=== PATIENT | female | born 2000 ===

== ENCOUNTER 2021-04-01 21:10 | Emergency (ER) | payer SELFPAY ==
--- OUTSIDE RECORDS SUMMARY | 2021-04-01 21:14 | XMS REPORT | Continuity of Care Document ---
:2000 Author Organization [facility] t Address [address] [place] [address] Care Team Providers Name Role Phone DR CALIN SHEIKH Attending Clinician Unavailable RAMESH DRUMMOND Attending Clinician Unavailable DR CHANEL NGO Attending Clinician Unavailable DR Lakhwinder SHEIKH Attending Clinician Unavailable DR KORI Admitting Clinician Unavailable DR Jacqueline NGO Admitting Clinician Unavailable DR Lakhwinder SHEIKH Admitting Clinician Unavailable Problems This patient has no known problems. Allergies, Adverse Reactions, Alerts This patient has no known allergies or adverse reactions. Medications This patient has no known medications. Procedures This patient has no known procedures. Encounters Start End Encounter Admission Attending Care Care Encounter Source Date/Time Date/Time Type Type Clinicians Facility Department ID 2020-05-09 2020-05-09 Emergency E KORI [facility] [id number] 15 15:06:00 22:08:00 [facility] 2019-09-12 2019-09-12 Emergency BHANU [facility] [id number] [place] 00:00:00 00:00:00 RAMESH [address] 2018-05-22 2018-05-22 Emergency [facility] [id number] [place] 22:10:38 22:10:38 Health 2018-05-22 2018-05-22 Emergency [facility] [id number] [place] 18:17:20 18:17:20 Health 2018-02-15 2018-02-15 Emergency Jacqueline NGO [facility] [id number] be 12:13:00 15:26:00 [facility] 2017-06-16 2017-06-16 Emergency E ATA SHEIKH [facility] [id number] [place] 03:57:00 15:07:00 [facility] 2017-03-31 2017-03-31 Emergency E ATA SHEIKH [facility] [id number] [place] 15:35:00 16:50:00 Medica l Center Results Test Description Test Time Test Comments Results Result Comments Source ACETAMINOPHEN 2020-05-09 18:45:00 Test Item Value Reference Range Interpretation Comme nts ACETAMINPH (test code = 94M) <2.0 ug/mL 10.0-30.0 L LIVER [id number] 18:40:00 Test Item Value Reference Range Interpretation Comments BILI TOTAL (test code 0.5 mg/dL 0.2-1.0 = 11A) BILI DIRCT (test code 0.1 mg/dL 0.0-0.2 = 12A) BILI INDIR (test code 0.4 mg/dL See_Comment [Auto mated message] = BILII) The system Mashed jobs generated this result transmitted ref erence range: <=0.8. T he reference range was not used to interpr et this result as normal/abnormal . PROTEIN (test code = 7.9 g/dL 6.4-8.2 07D) ALBUMIN (test code = 3.8 g/dL 3.5-4.8 08D) GLOBULIN (test code = 4.1 g/dL 1.5-3.8 H GLB) ALB/GLOB (test code = 0.9 1.0-2.6 L AGRR) ALK PHOS (test code = 160 IU/L 42-121 H 35A) AST (test code = 30A) 23 IU/L See_Comment [Auto mated message] The system Mashed jobs generated this result transmitted ref erence range: <=42. Th e reference range was not used to interpr et this result as normal/abnormal . ALT (test code = 31A) 48 IU/L See_Comment [Auto mated message] The system Mashed jobs generated this result transmitted ref erence range: <=78. Th e reference range was not used to interpr et this result as normal/abnormal . DRUGS OF [id number] 18:40:00 Test Item Value Reference Range Interpretation Comments DRUG SCRN (test code URINE DRUG SCREEN = HDOA) This is an unconfirmed screening result and should not be used for non-medical purposes CANNABINOD (test code POSITIVE NEGATIVE A = 88C) AMPHETAMINE (test Negative NEGATIVE code = 84A) BENZODIAZP (test code Negative NEGATIVE = 86A) BARBITURAT (test code Negative NEGATIVE = 85A) OPIATES (test code = Negative NEGATIVE 92B) COCAINE (test code = Negative NEGATIVE 87A) PHENCYCLID (test code Negative NEGATIVE = 66A) METHADONE (test code Negative NEGATIVE = 64A) DOAH (test code = DOAH.) *URINE DRUG SCREEN Cut-off values are as follows: Cannabinoids 50 ng/mL Cocaine 300 ng/mL Amphetamines 1000 ng/mL Phencyclidine 25 ng/mL Benzodiazepines 200 ng.mL Methadone 300 ng/mL Barbiturates 200 ng/mL Opiates 2000 ng/mL SARS-CoV (RAPID ANTIGEN)2020-05-09 18:37:00 Test Item Value Reference Range Interpretation Comments SARS-CoV (ANTIGEN) NEGATIVE NEGATIVE (test code = COVAG) COVID AG (test This test has been code = COVAGC) marketed under the FDA Emergency Use Authorization (EUA) to meet challenges of the COVID-19 pandemic. The validation standards normally enforced by the FDA and the [employer] (CAP) are more stringent than those required for this test. Therefore, the result should be interpreted with caution and close attention to other clinical and epidemiological data AMMONIA [id number] 18:36:00 Test Item Value Reference Range Interpretation Comments AMMONIA (test code = 54A) 22 umol/L 11-32 BASIC METABOLIC [id number] 18:33:00 Test Item Value Reference Range Interpretation Comments GLUCOSE (test code 105 mg/dL 75-100 H = 06D) SODIUM (test code 142 mmol/L 136-145 = 01A) POTASSIUM (test 3.6 mmol/L 3.6-5.1 code = 01B) CHLORIDE (test 108 mmol/L 98-107 H code = 04A) CO2 (test code = 28 mmol/L 22-32 02A) ANION GAP (test 9.6 mmol/L code = ANG) BUN (test code = 10 mg/dL 7-18 05D) CREATININE (test 0.6 mg/dL 0.4-1.1 code = 03E) GFR (test code = 135 See_Comment [Automated GFR) mL/min/1.73m\S\2 message] Th e system which generated this result transmit adrian reference range : >=90. The reference range was not used to interpret this result as normal/abnormal . GFR 156 See_Comment [Automated EMIRATI (test mL/min/1.73m\S\2 message] The code = GFRAA) system which generated this result transmit adrian reference range : >=90. The reference range was not used to interpret this result as normal/abnormal . EGFR (test code = eGFR BY EGFR) CKD-EPI CALCULATION IS NOT RECOMMENDED FOR PATIENTS UNDER 18 YEARS OF AGE. BUN/CREA (test 18 1220 code = BCR) CALCIUM (test code 9.3 mg/dL 8.3-9.5 = 09D) ALCOHOL BLOOD (ETOH)2020-05-09 18:33:00 Test Item Value Reference Range Interpretation Comments ETOH (test code = ETHANOL HALC) The result is to be used only for medical purposes ALCOHOL (test <10 mg/dL See_Comment [Automated me ssage] code = 56A) The system whic h generated this result transmit adrian reference range : <=10. The refer ence range was not u sed to interpret th is result as normal/abnormal . [id number] 18:30:00 Test Item Value Reference Range Interpretation Comments SALICYLATE (test code = 94B) <1.7 mg/dL 2.8-20.0 L URINALYSIS WITH [id number] 18:26:00 Test Item Value Reference Range Interpretation Comments COLOR (test code = YELLOW YELLOW COLU) CLARITY (test code = CLOUDY CLEAR A CLA) GLUCOSE UR (test code = NEGATIVE NEGATIVE UA GLUCOSE) BILI UR (test code = NEGATIVE NEGATIVE BILE) KETONES UR (test code = NEGATIVE NEGATIVE ERVIN) SP GRAVITY (test code = 1.027 1.005-1.030 SPGR) PH UR (test code = PH) 6.0 4.5-8.0 PROTEIN UR (test code = 1+ NEGATIVE A PU) UROBIL UR (test code = 1.0 EU/dL 0.2-1.0 UROQ) NITRITE UR (test code = NEGATIVE NEGATIVE NITRITE) BLOOD UR (test code = NEGATIVE NEGATIVE UA BLOOD) LEUK ES UR (test code = 1+ NEGATIVE A LEUK) WBC UR (test code = 7 /HPF 0-5 H UWBC) RBC UR (test code = 2 /HPF 0-2 URBC) EPITH UR (test code = MODERATE /LPF FEW A UEPC) BACTERIA UR (test code MODERATE /HPF NONE A = UBACT) CAST UR (test code = /LPF NONE CAST) CRYSTAL UR (test code = CALCIUM OXALATE NONE A CRYU) MODERATE / LPF MUCUS UR (test code = / HPF NONE MUC) AMORPH UR (test code = / HPF NONE WILLIS) TRICH UR (test code = /HPF NONE UTRICH) YEAST UR (test code = /HPF NONE UY) SPERM UR (test code = /HPF NONE USPERM) URINE [id number] 18:26:00 Test Item Value Reference Range Interpretation Comments PREG UR (test code = PGU) NEGATIVE NEGATIVE CBC (INCLUDES AUTOMATED DIFFERENTIAL)2020-05-09 18:21:00 Test Item Value Reference Range Interpretation Comments WBC (test code = WBC) 11.9 10\S\3/uL 4.5-13.0 RBC (test code = RBC) 4.75 10\S\6/uL 4.30-5.70 HGB (test code = HBG) 14.4 g/dL 12.0-15.5 HCT (test code = HCT) 42.9 % 35.0-44.0 MCV (test code = MCV) 90.3 fL 81.0-99.0 MCH (test code = MCH) 30.3 pg 27.0-31.0 MCHC (test code = MCHC) 33.6 g/dL 32.0-36.0 RDW (test code = RDW) 13.0 % 11.5-14.5 PLT (test code = PLT) 303 10\S\3/uL 130-400 MPV (test code = MPV) 10.8 fL 9.4-12.4 NEUTROP # (test code = NE#) 8.6 10\S\3/uL 1.6-8.0 H LYMPH # (test code = LY#) 2.6 10\S\3/uL 1.1-3.5 MONOCYTE # (test code = MO#) 0.5 10\S\3/uL 0.0-1.1 EOSINOPH # (test code = EO#) 0.1 10\S\3/uL 0.0-0.7 BASOPHIL # (test code = BA#) 0.0 10\S\3/uL 0.0-0.3 IG # (test code = IG#) 0.05 10\S\3/uL 0.00-0.06 NRBC # (test code = NRBC#) 0.00 10\S\3/uL 0.00-0.01 NEUTROPH % (test code = NE%) 72.5 % 35.0-73.0 LYMPH % (test code = LY%) 22.3 % 20.0-55.0 MONO % (test code = MO%) 4.1 % 2.5-10.0 EOSINOPH % (test code = EO%) 0.5 % 0.0-5.0 BASOPHIL % (test code = BA%) 0.2 % 0.0-2.0 IG % (test code = IG%) 0.4 % 0.0-0.8 NRBC% (test code = NRBC%) 0.0 % 0.0-0.2 MANDIFF (test code = MDIFF) NO RBC MORPH (test code = RBCMOR) NORMAL DIRECT CHLAMYDIA [id number] 08:34:00 Test Item Value Reference Range Interpretation Comments CHLAMYDIA DETECTED NOT DETECTED A A positive CT o r NG TRACHOMATIS (test Nucleic Ac id code = 61235844) Amplificati on Test(NAAT) resu lt should be inter preted in conjunctionw ith other laborator y and clinical data available tothe clinician. If clinically jermaine cated, furthertesting can be performed on same sample usingan alternate molec ular target. To orde r alternatetarget test use 53979 (C. trachomatis) [place] 665[address] (N. gonorrhoeae ). NEISSERIA NOT DETECTED NOT DETECTED GONORRHOEAE (test code = 12500451) Endnote (test code This test was = 81255314) performed using the APTIMA COMBO2 Assay([employer]The michael tical performance characteristics of thisassay, when used to test SurePat h specimens haveb een determined by [employer].FADI T PERFORMED AT:[employer] [address] [id number] MAX M.D. [id number] 14:55:00 Test Item Value Reference Range Interpretation Comments COLOR (test code = COLU) YELLOW YELLOW CLARITY (test code = CLA) CLEAR CLEAR GLUCOSE UR (test code = UA GLUCOSE) NEGATIVE NEGATIVE BILI UR (test code = BILE) NEGATIVE NEGATIVE KETONES UR (test code = ERVIN) NEGATIVE NEGATIVE SP GRAVITY (test code = SPGR) 1.010 1.005-1.030 PH UR (test code = PH) 6.5 4.5-8.0 PROTEIN UR (test code = PU) NEGATIVE NEGATIVE UROBIL UR (test code = UROQ) 0.2 EU/dL 0.2-1.0 NITRITE UR (test code = NITRITE) NEGATIVE NEGATIVE BLOOD UR (test code = UA BLOOD) NEGATIVE NEGATIVE LEUK ES UR (test code = LEUK) NEGATIVE NEGATIVE WET [id number] 14:30:00 Test Item Value Reference Range Interpretation Comments Direct Exam (test FEW WHITE BLOOD CELLS code = DE1) SEEN Direct Exam (test FEW YEAST code = DE2) Direct Exam (test NO TRICHOMONAS SEEN code = DE3) Direct Exam (test NO CLUE CELLS SEEN code = DE4) CT ABDOMEN AND PELVIS WITH [id number] 13:54:09CT abdomen and pelvis with contrastLocation Code: [id number] HISTORY: Abdominal painCOMPARISON: 01/09Technique: Helical CT of the abdomen and pelvis was performed following theadministration of intravenous contrast. Thin section axial, sagittal andcoronal images were obtained. Automatic exposure control was utilized. TotalDLP: 1338 mGycmFINDINGS:The lung bases are clear. The liver, gallbladder, a drenal glands, kidneys, pancreas, and spleen areunremarkable.The unopacified loops of bowel demonstrate no focal thickening or dilatation.The appendix is surgically absent. There is no free peritonealair or fluid. The abdominal aorta is normal in caliber and contour. There is noretroperitoneal mass or fluid collection. The urinary bladder is unremarkable.There is no pelvic mass or fluid collection. The bones, skin, and surrounding soft tissues are unremarkable.IMPRESSION: No acute intra-abdominalor pelvic abnormality.LITHIUM 2018-02-15 13:54:00 Test Item Value Reference Range Interpretation Comments LITHIUM (test code = <0.20 mmol/L 0.60-1.50 L LI) LIH (test code = LIH) LIT HIUM THERAPEUTIC RANGE Acute karime: 1.0-1.5 mmol/L Miko-term control 0.6-1.2 mmol/L Toxic level: > 2.0 mmol/L AMYLASE AND [id number] 13:35:00 Test Item Value Reference Range Interpretation Comments AMYLASE (test code = 10A) 40 U/L 28-100 LIPASE (test code = 60A) 103 IU/L 73-393 COMPREHENSIVE METABOLIC [id number] 13:35:00 Test Item Value Reference Range Interpretation Comments GLUCOSE (test code = 06D) 106 mg/dL 75-100 H SODIUM (test code = 01A) 142 mmol/L 136-145 POTASSIUM (test code = 01B) 4.1 mmol/L 3.6-5.1 CHLORIDE (test code = 04A) 109 mmol/L 98-107 H CO2 (test code = 02A) 27 mmol/L 22-32 ANION GAP (test code = ANG) 10.1 mmol/L BUN (test code = 05D) 7 mg/dL 7-18 CREATININE (test code = 03E) 0.7 mg/dL 0.4-1.1 BUN/CREA (test code = BCR) 10 12-20 L CALCIUM (test code = 09D) 8.8 mg/dL 8.3-9.5 BILI TOTAL (test code = 11A) 0.3 mg/dL 0.2-1.0 PROTEIN (test code = 07D) 8.0 g/dL 6.0-8.0 ALBUMIN (test code = 08D) 3.8 g/dL 3.5-4.8 GLOBULIN (test code = GLB) 4.2 g/dL 1.5-3.8 H ALB/GLOB (test code = AGRR) 0.9 1.0-2.6 L ALK PHOS (test code = 35A) 129 IU/L 42-121 H AST (test code = 30A) 28 IU/L <=42 ALT (test code = 31A) 54 IU/L <=78 SERUM [id number] 13:27:00 Test Item Value Reference Range Interpretation Comments PREG SRM (test code = PGS) NEGATIVE NEGATIVE URINALYSIS WITH [id number] 13:26:00 Test Item Value Reference Range Interpretation Comments COLOR (test code = COLU) YELLOW YELLOW CLARITY (test code = CLA) TURBID CLEAR A GLUCOSE UR (test code = UA NEGATIVE NEGATIVE GLUCOSE) BILI UR (test code = BILE) NEGATIVE NEGATIVE KETONES UR (test code = ERVIN) NEGATIVE NEGATIVE SP GRAVITY (test code = SPGR) 1.025 1.005-1.030 PH UR (test code = PH) 7.5 4.5-8.0 PROTEIN UR (test code = PU) 1+ NEGATIVE A UROBIL UR (test code = UROQ) 1.0 EU/dL 0.2-1.0 NITRITE UR (test code = NEGATIVE NEGATIVE NITRITE) BLOOD UR (test code = UA 3+ NEGATIVE A BLOOD) LEUK ES UR (test code = LEUK) 2+ NEGATIVE A WBC UR (test code = UWBC) 5 /HPF 0-5 RBC UR (test code = URBC) 6 /HPF 0-2 H EPITH UR (test code = UEPC) MANY /LPF FEW A BACTERIA UR (test code = MODERATE /HPF NONE A UBACT) MUCUS UR (test code = MUC) MODERATE / HPF NONE A CBC (INCLUDES AUTOMATED DIFFERENTIAL)2018-02-15 13:19:00 Test Item Value Reference Range Interpretation Comments WBC (test code = WBC) 8.5 10\S\3/uL 4.5-13.0 RBC (test code = RBC) 4.66 10\S\6/uL 4.10-5.20 HGB (test code = HBG) 13.8 g/dL 11.5-15.5 HCT (test code = HCT) 41.4 % 35.0-45.0 MCV (test code = MCV) 88.8 fL 77.0-95.0 MCH (test code = MCH) 29.6 pg 25.0-33.0 MCHC (test code = MCHC) 33.3 g/dL 31.0-37.0 RDW (test code = RDW) 13.7 % 11.5-14.5 PLT (test code = PLT) 257 10\S\3/uL 130-400 MPV (test code = MPV) 10.8 fL 9.4-12.4 NEUTROP # (test code = NE#) 5.8 10\S\3/uL 1.6-8.0 LYMPH # (test code = LY#) 2.1 10\S\3/uL 1.1-3.5 MONOCYTE # (test code = MO#) 0.5 10\S\3/uL 0.0-1.1 EOSINOPH # (test code = EO#) 0.1 10\S\3/uL 0.0-0.7 BASOPHIL # (test code = BA#) 0.0 10\S\3/uL 0.0-0.3 IG # (test code = IG#) 0.02 10\S\3/uL 0.00-0.06 NRBC # (test code = NRBC#) 0.00 10\S\3/uL 0.00-0.01 NEUTROPH % (test code = NE%) 68.5 % 35.0-73.0 LYMPH % (test code = LY%) 24.3 % 20.0-55.0 MONO % (test code = MO%) 6.0 % 2.5-10.0 EOSINOPH % (test code = EO%) 0.8 % 0.0-5.0 BASOPHIL % (test code = BA%) 0.2 % 0.0-2.0 IG % (test code = IG%) 0.2 % 0.0-0.8 NRBC% (test code = NRBC%) 0.0 % 0.0-0.2 MANDIFF (test code = MDIFF) NO NO RBC MORPH (test code = RBCMOR) NORMAL CT HEAD W/O [id number] 12:58:22CT brain without contrast.Location code: [id number] HISTORY: Injury of head COMPARISON: 04/17/2015, 11/28/2011TECHNIQUE: Routine unenhanced axial imaging of the brain was performed. Coronal and sagittal reformatted images were obtained, as well. Automaticexposure control was utilized. Total DLP: 873 mGycmFINDINGS: There is no acute intracranial hemorrhage or extra-axial collection.There is no hydrocephalus, midline shift, or space occupying mass. Josue-whitematter differentiation is well preserved with no definite CT evidence of anacute infarct. The cranial vault and skull base are intact. Right occipital calvarial defectis stable. The paranasal sinuses and mastoid air cells are pneumatized and wellaerated. IMPRESSION: No acute intracranial abnormality.XR CHEST 1 VIEW [id number] 12:53:20EXAM: XR CHEST 1 VIEW PORTABLE.LOCATION: S 17.HISTORY: [id number]: Lower abdominal pain.COMPARISON: Radiograph dated 04/05/16.TECHNIQUE: Single AP view of the chest was obtained. FINDINGS:The heart is normal in size. Lung volumes are low. There is no focalconsolidation or pleural effusion. No acute osseous abnormality is identified.IMPRESSION:No acute cardiopulmonary abnormality.URINE CULTURE 2017-06-19 10:32:00 Test Item Value Reference Range Interpretation Comments Culture Observations THREE OR MORE SPECIES (test code = COB1) OF BACTERIA ISOLATED. PROBABLE CONTAMINATION. Culture Observations IDENTIFICATION AND (test code = COB17) SUSCEPTIBILITY NOT INDICATED. Isolate 1 (test code = Streptococcus A ISO1) agalactiae ampicillin (test code ug/mL S = am) levofloxacin (test ug/mL S code = lev) linezolid (test code = ug/mL S lnz) vancomycin (test code ug/mL S = va) tetracycline (test ug/mL R code = tet) Isolate 1 (test code = Streptococcus A ISO11) agalactiae ampicillin (test code ug/mL S = am) levofloxacin (test ug/mL S code = lev) linezolid (test code = ug/mL S lnz) vancomycin (test code ug/mL S = va) tetracycline (test ug/mL R code = tet) [id number] 04:58:00 Test Item Value Reference Range Interpretation Comments ACETAMINPH (test code = 94M) <2.0 ug/mL 10.0-30.0 L LIVER [id number] 04:58:00 Test Item Value Reference Range Interpretation Comments BILI TOTAL (test code = 11A) 0.2 mg/dL 0.2-1.0 BILI DIRCT (test code = 12A) <0.1 mg/dL 0.0-0.2 BILI INDIR (test code = BILII) <0.1 mg/dL <=0.8 PROTEIN (test code = 07D) 7.1 g/dL 6.0-8.0 ALBUMIN (test code = 08D) 3.7 g/dL 3.5-4.8 GLOBULIN (test code = GLB) 3.4 g/dL 1.5-3.8 ALB/GLOB (test code = AGRR) 1.1 1.0-2.6 ALK PHOS (test code = 35A) 148 IU/L 42-121 H AST (test code = 30A) 30 IU/L <=42 ALT (test code = 31A) 52 IU/L <=78 [id number] 04:51:00 Test Item Value Reference Range Interpretation Comments SALICYLATE (test code = 94B) <1.7 mg/dL 2.8-20.0 L ALCOHOL BLOOD (ETOH)2017-06-16 04:51:00 Test Item Value Reference Range Interpretation Comments ETOH (test code = HALC) ETHANOL The result is to be used only for medical purposes ALCOHOL (test code = <10 mg/dL <=10 56A) BASIC METABOLIC [id number] 04:44:00 Test Item Value Reference Range Interpretation Comments GLUCOSE (test code = 06D) 111 mg/dL 75-100 H SODIUM (test code = 01A) 141 mmol/L 136-145 POTASSIUM (test code = 01B) 3.8 mmol/L 3.6-5.1 CHLORIDE (test code = 04A) 108 mmol/L 98-107 H CO2 (test code = 02A) 26 mmol/L 22-32 ANION GAP (test code = ANG) 10.8 mmol/L BUN (test code = 05D) 10 mg/dL 7-18 CREATININE (test code = 03E) 0.6 mg/dL 0.4-1.1 BUN/CREA (test code = BCR) 16 12-20 CALCIUM (test code = 09D) 9.0 mg/dL 8.3-9.5 DRUGS OF [id number] 04:39:00 Test Item Value Reference Range Interpretation Comments DRUG SCRN (test code URINE DRUG SCREEN = HDOA) This is an unconfirmed screening result and should not be used for non-medical purposes CANNABINOD (test code Negative NEGATIVE = 88C) AMPHETAMINE (test Negative NEGATIVE code = 84A) BENZODIAZP (test code Negative NEGATIVE = 86A) BARBITURAT (test code Negative NEGATIVE = 85A) OPIATES (test code = Negative NEGATIVE 92B) COCAINE (test code = Negative NEGATIVE 87A) PHENCYCLID (test code Negative NEGATIVE = 66A) METHADONE (test code Negative NEGATIVE = 64A) DOAH (test code = DOAH) *URINE DRUG SCREEN Cut-off values are as follows: Cannabinoids 50 ng/mL Cocaine 300 ng/mL Amphetamines 1000 ng/mL Phencyclidine 25 ng/mL Benzodiazepines 200 ng.mL Methadone 300 ng/mL Barbiturates 200 ng/mL Opiates 2000 ng/mL SERUM [id number] 04:38:00 Test Item Value Reference Range Interpretation Comments PREG SRM (test code = PGS) NEGATIVE NEGATIVE URINALYSIS WITH [id number] 04:35:00 Test Item Value Reference Range Interpretation Comments COLOR (test code = COLU) YELLOW YELLOW CLARITY (test code = CLA) CLOUDY CLEAR A GLUCOSE UR (test code = UA GLUCOSE) NEGATIVE NEGATIVE BILI UR (test code = BILE) NEGATIVE NEGATIVE KETONES UR (test code = ERVIN) NEGATIVE NEGATIVE SP GRAVITY (test code = SPGR) 1.018 1.005-1.030 PH UR (test code = PH) 6.5 4.5-8.0 PROTEIN UR (test code = PU) NEGATIVE NEGATIVE UROBIL UR (test code = UROQ) 1.0 EU/dL 0.2-1.0 NITRITE UR (test code = NITRITE) NEGATIVE NEGATIVE BLOOD UR (test code = UA BLOOD) NEGATIVE NEGATIVE LEUK ES UR (test code = LEUK) 2+ NEGATIVE A WBC UR (test code = UWBC) 10 /HPF 0-5 H RBC UR (test code = URBC) 0 /HPF 0-2 EPITH UR (test code = UEPC) FEW /LPF FEW BACTERIA UR (test code = UBACT) NONE /HPF NONE CAST UR (test code = CAST) /LPF NONE CRYSTAL UR (test code = CRYU) / LPF NONE MUCUS UR (test code = MUC) / HPF NONE AMORPH UR (test code = WILLIS) FEW / HPF NONE A TRICH UR (test code = UTRICH) /HPF NONE YEAST UR (test code = UY) /HPF NONE SPERM UR (test code = USPERM) /HPF NONE CBC (INCLUDES AUTOMATED DIFFERENTIAL)2017-06-16 04:34:00 Test Item Value Reference Range Interpretation Comments WBC (test code = WBC) 9.9 10\S\3/uL 4.5-13.0 RBC (test code = RBC) 4.30 10\S\6/uL 4.10-5.20 HGB (test code = HBG) 13.0 g/dL 11.5-15.5 HCT (test code = HCT) 38.7 % 35.0-45.0 MCV (test code = MCV) 90.0 fL 77.0-95.0 MCH (test code = MCH) 30.2 pg 25.0-33.0 MCHC (test code = MCHC) 33.6 g/dL 31.0-37.0 RDW (test code = RDW) 12.5 % 11.5-14.5 PLT (test code = PLT) 261 10\S\3/uL 130-400 MPV (test code = MPV) 10.8 fL 9.4-12.4 NEUTROP # (test code = NE#) 4.5 10\S\3/uL 1.6-8.0 LYMPH # (test code = LY#) 4.7 10\S\3/uL 1.1-3.5 H MONOCYTE # (test code = MO#) 0.6 10\S\3/uL 0.0-1.1 EOSINOPH # (test code = EO#) 0.2 10\S\3/uL 0.0-0.7 BASOPHIL # (test code = BA#) 0.0 10\S\3/uL 0.0-0.3 IG # (test code = IG#) 0.03 10\S\3/uL 0.00-0.06 NRBC # (test code = NRBC#) 0.00 10\S\3/uL 0.00-0.01 NEUTROPH % (test code = NE%) 44.9 % 35.0-73.0 LYMPH % (test code = LY%) 46.8 % 20.0-55.0 MONO % (test code = MO%) 6.1 % 2.5-10.0 EOSINOPH % (test code = EO%) 1.6 % 0.0-5.0 BASOPHIL % (test code = BA%) 0.3 % 0.0-2.0 IG % (test code = IG%) 0.3 % 0.0-0.8 NRBC% (test code = NRBC%) 0.0 % 0.0-0.2 MANDIFF (test code = MDIFF) NO NO RBC MORPH (test code = RBCMOR) NORMAL CT ABDOMEN AND PELVIS WITH [id number] 14:59:21LOCATION: [id number]: 16-year-old female who presents with abdominal pain.COMMENT: Field 3Axial CT im aging of this patient's abdomen and pelvis was obtained during IVcontrast injection. Coronal and sagittal soft tissue reconstructions wereincluded. Surgical history is notable for prior appendectomy. Also, the patient haspreviously had a cyst removed from her urinary bladder.One or more of the following dose reduction techniques are used: Automatedexposure control, adjustment of the mA and/or kV according the patient size,and/or utilization of iterative reconstruction technique.DLP: 1322 mGy-cmCONTRAST: 100 mL of Omnipaque 300 nonionic contrast was injected into rightantecubital vein. Serum creatinine level was 0.6.FINDINGS:The lung bases are clear and the cardiac silhouette is unremarkable.The liver, spleen, pancreas, adrenal glands, kidneys, and gallbladder areunremarkable.The upper intestinal tract and small intestine are unremarkable. The colon isunremarkable.There is no ascites or adenopathy present in the abdomen.In the pelvis the urinary bladder, uterus, and ovaries are unremarkable.The vascular anatomy is unremarkable.The musculoskeletal anatomy is unremarkable.IMPRESSION:Unremarkable CT examination of the abdomen and pelvis. [id number] 14:36:00 Test Item Value Reference Range Interpretation Comments AMYLASE (test code = 10A) 41 U/L 28-100 COMPREHENSIVE METABOLIC [id number] 14:36:00 Test Item Value Reference Range Interpretation Comments GLUCOSE (test code = 06D) 122 mg/dL 75-100 H SODIUM (test code = 01A) 139 mmol/L 136-145 POTASSIUM (test code = 01B) 3.5 mmol/L 3.6-5.1 L CHLORIDE (test code = 04A) 106 mmol/L 98-107 CO2 (test code = 02A) 26 mmol/L 22-32 ANION GAP (test code = ANG) 10.5 mmol/L BUN (test code = 05D) 11 mg/dL 7-18 CREATININE (test code = 03E) 0.6 mg/dL 0.4-1.1 BUN/CREA (test code = BCR) 17 12-20 CALCIUM (test code = 09D) 8.3 mg/dL 8.3-9.5 BILI TOTAL (test code = 11A) 0.2 mg/dL 0.2-1.0 PROTEIN (test code = 07D) 7.7 g/dL 6.0-8.0 ALBUMIN (test code = 08D) 3.8 g/dL 3.5-4.8 GLOBULIN (test code = GLB) 3.9 g/dL 1.5-3.8 H ALB/GLOB (test code = AGRR) 1.0 1.0-2.6 ALK PHOS (test code = 35A) 158 IU/L 42-121 H AST (test code = 30A) 28 IU/L <=42 ALT (test code = 31A) 58 IU/L <=78 LIPASE [id number] 14:36:00 Test Item Value Reference Range Interpretation Comments LIPASE (test code = 60A) 134 IU/L 73-393 CBC (INCLUDES AUTOMATED DIFFERENTIAL)[id number] 14:30:00 Test Item Value Reference Range Interpretation Comments WBC (test code = WBC) 8.4 10\S\3/uL 4.5-13.0 RBC (test code = RBC) 4.50 10\S\6/uL 4.10-5.20 HGB (test code = HBG) 13.8 g/dL 11.5-15.5 HCT (test code = HCT) 39.9 % 35.0-45.0 MCV (test code = MCV) 88.7 fL 77.0-95.0 MCH (test code = MCH) 30.7 pg 25.0-33.0 MCHC (test code = MCHC) 34.6 g/dL 31.0-37.0 RDW (test code = RDW) 12.8 % 11.5-14.5 PLT (test code = PLT) 253 10\S\3/uL 130-400 MPV (test code = MPV) 10.8 fL 9.4-12.4 NEUTROP # (test code = NE#) 4.8 10\S\3/uL 1.6-8.0 LYMPH # (test code = LY#) 3.0 10\S\3/uL 1.1-3.5 MONOCYTE # (test code = MO#) 0.4 10\S\3/uL 0.0-1.1 EOSINOPH # (test code = EO#) 0.1 10\S\3/uL 0.0-0.7 BASOPHIL # (test code = BA#) 0.0 10\S\3/uL 0.0-0.3 IG # (test code = IG#) 0.03 10\S\3/uL 0.00-0.06 NRBC # (test code = NRBC#) 0.00 10\S\3/uL 0.00-0.01 NEUTROPH % (test code = NE%) 56.9 % 35.0-73.0 LYMPH % (test code = LY%) 35.7 % 20.0-55.0 MONO % (test code = MO%) 5.2 % 2.5-10.0 EOSINOPH % (test code = EO%) 1.4 % 0.0-5.0 BASOPHIL % (test code = BA%) 0.4 % 0.0-2.0 IG % (test code = IG%) 0.4 % 0.0-0.8 NRBC% (test code = NRBC%) 0.0 % 0.0-0.2 MANDIFF (test code = MDIFF) NO NO RBC MORPH (test code = RBCMOR) NORMAL [id number] 14:30:00 Test Item Value Reference Range Interpretation Comments COLOR (test code = COLU) YELLOW YELLOW CLARITY (test code = CLA) CLEAR CLEAR GLUCOSE UR (test code = UA GLUCOSE) NEGATIVE NEGATIVE BILI UR (test code = BILE) NEGATIVE NEGATIVE KETONES UR (test code = ERVIN) NEGATIVE NEGATIVE SP GRAVITY (test code = SPGR) 1.013 1.005-1.030 PH UR (test code = PH) 7.0 4.5-8.0 PROTEIN UR (test code = PU) NEGATIVE NEGATIVE UROBIL UR (test code = UROQ) 1.0 EU/dL 0.2-1.0 NITRITE UR (test code = NITRITE) NEGATIVE NEGATIVE BLOOD UR (test code = UA BLOOD) NEGATIVE NEGATIVE LEUK ES UR (test code = LEUK) NEGATIVE NEGATIVE URINE [id number] 14:28:00 Test Item Value Reference Range Interpretation Comments PREG UR (test code = PGU) NEGATIVE NEGATIVE URINALYSIS WITH [id number] 16:42:00 Test Item Value Reference Range Interpretation Comments COLOR (test code = YELLOW YELLOW COLU) CLARITY (test code = CLOUDY CLEAR A CLA) GLUCOSE UR (test code = NEGATIVE NEGATIVE UA GLUCOSE) BILI UR (test code = NEGATIVE NEGATIVE BILE) KETONES UR (test code = NEGATIVE NEGATIVE ERVIN) SP GRAVITY (test code = 1.027 1.005-1.030 SPGR) PH UR (test code = PH) 6.0 4.5-8.0 PROTEIN UR (test code = NEGATIVE NEGATIVE PU) UROBIL UR (test code = 1.0 EU/dL 0.2-1.0 UROQ) NITRITE UR (test code = NEGATIVE NEGATIVE NITRITE) BLOOD UR (test code = NEGATIVE NEGATIVE UA BLOOD) LEUK ES UR (test code = 1+ NEGATIVE A LEUK) WBC UR (test code = 3 /HPF 0-5 UWBC) RBC UR (test code = 0 /HPF 0-2 URBC) EPITH UR (test code = MODERATE /LPF FEW A UEPC) BACTERIA UR (test code MODERATE /HPF NONE A = UBACT) CAST UR (test code = FINELY GRANULAR FEW NONE A CAST) /LPF CRYSTAL UR (test code = / LPF NONE CRYU) MUCUS UR (test code = / HPF NONE MUC) AMORPH UR (test code = / HPF NONE WILLIS) TRICH UR (test code = /HPF NONE UTRICH) YEAST UR (test code = /HPF NONE UY) SPERM UR (test code = /HPF NONE USPERM) AMYLASE AND [id number] 16:39:00 Test Item Value Reference Range Interpretation Comments AMYLASE (test code = 10A) 49 U/L 28-100 LIPASE (test code = 60A) 157 IU/L 73-393 COMPREHENSIVE METABOLIC [id number] 16:39:00 Test Item Value Reference Range Interpretation Comments GLUCOSE (test code = 06D) 84 mg/dL 75-100 SODIUM (test code = 01A) 142 mmol/L 136-145 POTASSIUM (test code = 01B) 3.6 mmol/L 3.6-5.1 CHLORIDE (test code = 04A) 108 mmol/L 98-107 H CO2 (test code = 02A) 28 mmol/L 22-32 ANION GAP (test code = ANG) 9.6 mmol/L BUN (test code = 05D) 13 mg/dL 7-18 CREATININE (test code = 03E) 0.5 mg/dL 0.4-1.1 BUN/CREA R (test code = BCR) 24 12-20 H CALCIUM (test code = 09D) 8.8 mg/dL 8.3-9.5 BILI TOTAL (test code = 11A) 0.2 mg/dL 0.2-1.0 PROTEIN (test code = 07D) 7.4 g/dL 6.0-8.0 ALBUMIN (test code = 08D) 3.8 g/dL 3.5-4.8 GLOBULIN (test code = GLB) 3.6 g/dL 1.5-3.8 ALB/GLOB (test code = AGRR) 1.1 1.0-2.6 ALK PHOS (test code = 35A) 157 IU/L 42-121 H AST (test code = 30A) 21 IU/L <=42 ALT (test code = 31A) 39 IU/L <=78 CBC (INCLUDES AUTOMATED DIFFERENTIAL)[id number] 16:33:00 Test Item Value Reference Range Interpretation Comments WBC (test code = WBC) 8.7 10\S\3/uL 4.5-13.5 RBC (test code = RBC) 4.32 10\S\6/uL 4.10-5.20 HGB (test code = HBG) 12.9 g/dL 11.5-15.5 HCT (test code = HCT) 37.9 % 35.0-45.0 MCV (test code = MCV) 87.7 fL 77.0-95.0 MCH (test code = MCH) 29.9 pg 25.0-33.0 MCHC (test code = MCHC) 34.0 g/dL 31.0-37.0 RDW (test code = RDW) 12.9 % 11.5-14.5 PLT (test code = PLT) 241 10\S\3/uL 130-400 MPV (test code = MPV) 11.1 fL 9.4-12.4 NEUTROP # (test code = NE#) 4.4 10\S\3/uL 1.6-8.0 LYMPH # (test code = LY#) 3.5 10\S\3/uL 1.1-3.5 MONOCYTE # (test code = MO#) 0.5 10\S\3/uL 0.0-1.1 EOSINOPH # (test code = EO#) 0.2 10\S\3/uL 0.0-0.7 BASOPHIL # (test code = BA#) 0.0 10\S\3/uL 0.0-0.3 IG # (test code = IG#) 0.03 10\S\3/uL 0.00-0.06 NRBC # (test code = NRBC#) 0.00 10\S\3/uL 0.00-0.01 NEUTROPH % (test code = NE%) 51.0 % 35.0-73.0 LYMPH % (test code = LY%) 40.3 % 20.0-55.0 MONO % (test code = MO%) 5.8 % 2.5-10.0 EOSINOPH % (test code = EO%) 2.3 % 0.0-5.0 BASOPHIL % (test code = BA%) 0.3 % 0.0-2.0 IG % (test code = IG%) 0.3 % 0.0-0.8 NRBC% (test code = NRBC%) 0.0 % 0.0-0.2 MANDIFF (test code = MDIFF) NO NO RBC MORPH (test code = RBCMOR) NORMAL SERUM [id number] 16:31:00 Test Item Value Reference Range Interpretation Comments PREG SRM (test code = PGS) NEGATIVE NEGATIVE
--- NOTE | 2021-04-01 22:41 | EDPHYS ---
Physician Documentation [facility] Name: Eileen Streeter Age: 20 yrs Sex: Female : 2000 Arrival Date: 04/01/2021 Time: 21:19 Bed 11 Private MD: ED Physician Jon Busby HPI: 04/01 22:44 This 20 yrs old Female presents to ER via EMS with complaints of Anxiety, Chest Pain. kb 22:44 The patient has experienced similar episodes in the past, multiple times. The patient kb has not recently seen a physician. 22:44 The patient presents to the emergency department with anxiety, over arrest. Onset: The kb symptoms/episode began/occurred just prior to arrival. Associated signs and symptoms: Pertinent positives; chest pain, shortness of breath. Severity of symptoms: At their worst the symptoms were moderate in the emergency department the symptoms are unchanged. Pt reports chest pain and difficulty breathing that started after she started crying. States she has a history of anxiety and this has happened several times in the past. . 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 ROS: 22:43 Constitutional: Negative for fever, chills, and weight loss. kb 22:43 Cardiovascular: Positive for chest pain, Negative for edema, orthopnea, palpitations, paroxysmal nocturnal dyspnea. 22:43 Psych: Positive for anxiety, Negative for depression, drug dependence, alcohol dependence, auditory hallucinations, visual hallucinations, homicidal ideation, insomnia, suicide gesture, suicidal ideation. 22:43 All other systems are negative. 22:43 Respiratory: Positive for shortness of breath. kb Exam: 22:43 Constitutional: This is a well developed, well nourished patient who is awake, alert, kb and in no acute distress. Head/Face: Normocephalic, atraumatic. ENT: Moist Mucous membranes Cardiovascular: Regular rate and rhythm with a normal S1 and S2. No gallops, murmurs, or rubs. No pulse deficits. Skin: Warm, dry with normal turgor. Normal color. MS/ Extremity: Pulses equal, no cyanosis. Neurovascular intact. Full, normal range of motion. Neuro: Awake and alert, GCS 15, oriented to person, place, time, and situation. Moves all extremities. Normal gait. Psych: Awake, alert, with orientation to person, place and time. Behavior, mood, and affect are within normal limits. 22:43 Respiratory: the patient does not display signs of respiratory distress, Respirations: hyperventilating, Breath sounds: are clear throughout. Vital Signs: 21:34 Pulse 77; Resp 22; Temp 98.9(O); Pulse Ox 100% on R/A; Weight 116.57 kg; Height 4 ft. tw5 11 in. (149.86 cm); Pain 9/10; 21:36 BP 103 / 76; tw5 21:34 Body Mass Index 51.91 (116.57 kg, 149.86 cm) tw5 MDM: 22:01 Patient medically screened. 22:40 Data reviewed: vital signs, nurses notes. Data interpreted: Pulse oximetry: on room air kb is 100 %. Interpretation: normal. Counseling: I had a detailed discussion with the patient and/or guardian regarding: the historical points, exam findings, and any diagnostic results supporting the discharge/admit diagnosis, radiology results, the need for outpatient follow up, a family practitioner, to return to the emergency department if symptoms worsen or persist or if there are any questions or concerns that arise at home. 04/01 22:01 Order name: Chest Single View XRAY 04/01 22:01 Order name: EKG; Complete Time: 22:02 kb 04/01 22:01 Order name: EKG - Nurse/Tech; Complete Time: 22:09 kb Administered Medications: No medications were administered Disposition: 04/02 08:04 Co-signature as Attending Physician, Jon Busby MD I agree with the assessment and sp3 plan of care. Disposition Summary: 04/01/21 22:40 Discharge Ordered Location: Law Enforcement Condition: Stable kb Diagnosis - Acute stress reaction kb - Chest pain, unspecified kb Followup: kb - With: Emergency Department - When: As needed - Reason: Worsening of condition Followup: kb - With: Private Physician - When: 2 - 3 days - Reason: Recheck today's complaints, Continuance of care, Re-evaluation by your physician Discharge Instructions: - Discharge Summary Sheet kb - Panic Attack, [id number] kb Forms: - Medication Reconciliation Form kb - Thank You Letter kb - Antibiotic Education kb - Prescription Opioid Use kb Signatures: Dispatcher [employer] EDLola Potter, CAFETERIA AIDE-C LIZBET-Jon Jessica MD MD sp3 Rena Camp tw5 Corrections: (The following items were deleted from the chart) 04/01 21:43 21:40 Allergies: No Known Allergies; tw5 tw5
--- NOTE | 2021-04-01 22:41 | ER ---
Nurse's Notes [facility] Name: Eileen Streeter Age: 20 yrs Sex: Female : 2000 Arrival Date: 04/01/2021 Time: 21:19 Bed 11 Private MD: Diagnosis: Acute stress reaction;Chest pain, unspecified Presentation: 04/01 21:36 Chief complaint: Patient states: "My chest hurts, it started hurting after I started tw5 crying. So like an hour ago.". 21:37 Chief complaint: Patient states: Patient states " I am just feeling anxious." She tw5 stated " Being locked up caused my anxiety to go up.". Coronavirus screen: Vaccine status: Patient reports being unvaccinated. Ebola Screen: Patient negative for fever greater than or equal to 101.5 degrees Fahrenheit, and additional compatible Ebola Virus Disease symptoms Patient denies exposure to infectious person. Patient denies travel to an Ebola-affected area in the 21 days before illness onset. Initial Sepsis Screen: Does the patient meet any 2 criteria? No. Patient's initial sepsis screen is negative. Does the patient have a suspected source of infection? No. Patient's initial sepsis screen is negative. Risk Assessment: Do you want to hurt yourself or someone else? Patient reports no desire to harm self or others. Onset of symptoms was April 01, 2021 at 21:00. 21:37 Method Of Arrival: EMS: [facility] tw5 21:37 Method Of Arrival: EMS: [facility] tw5 21:37 Acuity: JOHANA 4 tw5 Triage Assessment: 21:40 General: Appears in no apparent distress. Behavior is agitated, anxious. Pain: tw5 Complains of pain in chest Pain currently is 9 out of 10 on a pain scale. Cardiovascular: Capillary refill < 3 seconds is brisk in bilateral fingers. 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 Screenin:07 Abuse screen: Denies threats or abuse. Nutritional screening: No deficits noted. sf1 Tuberculosis screening: No symptoms or risk factors identified. Fall Risk None identified. Assessment: 22:07 General: Appears uncomfortable, obese, unkempt, Behavior is anxious. Pain: Complains of sf1 pain in chest Pain began 1 hour ago. Neuro: No deficits noted. Cardiovascular: Reports chest pain. Respiratory: No deficits noted. GI: No deficits noted. : No deficits noted. EENT: No deficits noted. Derm: No deficits noted. Musculoskeletal: No deficits noted. Vital Signs: 21:34 Pulse 77; Resp 22; Temp 98.9(O); Pulse Ox 100% on R/A; Weight 116.57 kg; Height 4 ft. tw5 11 in. (149.86 cm); Pain 9/10; 21:36 BP 103 / 76; tw5 21:34 Body Mass Index 51.91 (116.57 kg, 149.86 cm) tw5 ED Course: 21:19 Patient arrived in ED. ld1 21:40 Triage completed. tw5 21:43 Arm band placed on Patient police with patient. tw5 21:57 Margy Santos RN is Primary Nurse. sf1 22:01 Lola Tucker FNP-C is PHCP. kb 22:01 Jon Busby MD is Attending Physician. kb 22:07 Patient has correct armband on for positive identification. Bed in low position. Pulse sf1 ox on. NIBP on. 22:07 Patient maintains SpO2 saturation greater than 95% on room air. sf1 22:28 Chest Single View XRAY In Process Unspecified. EDMS 22:45 No provider procedures requiring assistance completed. Patient did not have IV access ld1 during this emergency room visit. Administered Medications: No medications were administered Outcome: 22:40 Discharge ordered by . kb 22:46 Discharged to home ambulatory. ld1 22:46 Condition: stable 22:46 Discharge instructions given to patient, police, Instructed on discharge instructions, follow up and referral plans. Demonstrated understanding of instructions, follow-up care. 22:47 Patient left the ED. ld1 Signatures: Dispatcher [employer] EDMS Lola Tucker FNP-C FNP-Ckb Dibbern, Lauren, RN RN ld1 Rena Camp tw5 Fillers, Margy, RN RN sf1 Corrections: (The following items were deleted from the chart) : 21:40 Allergies: No Known Allergies; 21:47 21:36 BP 158 / 129;
[2021-04-01 23:16] VITALS: TEMP 98.9; O2SAT 100
[2021-04-01 23:17] VITALS: BP 103/76
--- NOTE | 2021-04-02 09:57 | RAD REPORT ---
EXAM DESCRIPTION: RAD - Chest Single View - 04/01/2021 10:29 pm CLINICAL HISTORY: CHEST PAIN Chest pain. COMPARISON: No comparisons FINDINGS: Portable technique limits examination quality. Mild interstitial opacities are present likely representing mild viral infection. The heart is upper limit of normal in size. No displaced fractures.
== END 2021-04-01 22:47 ==
LOC: ER 21:10
DX: F43.0 Acute stress reaction (principal); F20.9 Schizophrenia, unspecified; Z88.1 Allergy status to other antibiotic agents
CPT/HCPCS: 71045; 93005; 99284